=== PATIENT | male | born 1945 | race Caucasian/White ===

== ENCOUNTER → 2018-10-01 | Outpatient (CLI) | payer MEDICARE ==
[~2018-10-01] MED LIST: ALBUTEROL SULFATE 0.083% 2.5 MG/3 ML INH IH ONE; ASPI-555 PO; BENA20TA10 PO; FINA5TAB41 PO
== END | disposition home or self-care (01) ==
LOC: RESP 12:02
PROVIDERS: ATTEND Internal Medicine
DX: J44.9 Chronic obstructive pulmonary disease, unspecified (principal)
CPT/HCPCS: 94060; 94727; 94729

== ENCOUNTER 2019-03-04 11:11 | Inpatient (IN) | payer MEDICARE | END 2019-03-07 13:30 | disposition home or self-care (01) | LOC: EDH 11:11 → EDHIP 11:35 → 3BH 18:30 | DX: A41.9 Sepsis, unspecified organism (principal); K35.80 Unspecified acute appendicitis; I10 Essential (primary) hypertension; E03.9 Hypothyroidism, unspecified; N40.0 Benign prostatic hyperplasia without lower urinary tract symptoms ==

== ENCOUNTER 2019-04-22 05:30 | Day surgery (SDC) | payer MEDICARE ==
[2019-04-22] VITALS (7 sets, daily range): BP systolic 87–146; BP diastolic 47–74
[~2019-04-22] VITALS: Ht 180.3 cm; Wt 85.7 kg
[~2019-04-22 05:30] MED LIST changes: +ALBU2.5V2 IH; -ALBUTEROL SULFATE 0.083% 2.5 MG/3 ML INH IH ONE; +AMLO5TAB9 PO; -ASPI-555 PO; -BENA20TA10 PO; -FINA5TAB41 PO; +LEVO0.5P2 MC; +PRAV40TA3 PO; +TAMS-1 PO; +UMEC1DIS IH
[2019-04-22] MEDS ORDERED: SODIUM CHLORIDE 0.9% 1000ML 1,000 ML IV ONE (05:43)
[2019-04-22] MEDS ORDERED: ASPI-555 PO (06:10)
[2019-04-22] MEDS ORDERED: PROPOFOL 10 MG/ML 20ML VIAL IV ONE (06:48)
== END 2019-04-22 07:40 | disposition home or self-care (01) ==
LOC: DAH 05:30 → ENDO 05:30
PROVIDERS: ATTEND Internal Medicine Gastroenterology
DX: Z12.11 Encounter for screening for malignant neoplasm of colon (principal); D12.2 Benign neoplasm of ascending colon; K57.30 Diverticulosis of large intestine without perforation or abscess without bleeding; I10 Essential (primary) hypertension; J44.9 Chronic obstructive pulmonary disease, unspecified; Z90.49 Acquired absence of other specified parts of digestive tract; Z98.890 Other specified postprocedural states; Z86.010 Personal history of colon polyps; Z88.8 Allergy status to other drugs, medicaments and biological substances; Z91.041 Radiographic dye allergy status; Z79.899 Other long term (current) drug therapy; Z79.82 Long term (current) use of aspirin; Z98.49 Cataract extraction status, unspecified eye
CPT/HCPCS: 45385; 88305; A4606; J2704; J7030

== ENCOUNTER 2021-09-26 06:41 | Day surgery (SDC) | payer MEDICARE, OTHER ==
[2021-09-21 11:13] LABS: HEMATOCRIT 39.6 % (42-54); MEAN CORPUSCULAR HEMOGLOBIN 38.2 pg (27.0-33.0); MEAN CORPUSCULAR HGB CONC 34.8 g/dL (32.0-36.0); MEAN CORPUSCULAR VOLUME 109.7 fL (79-99); RED BLOOD CELL COUNT(AUTO) 3.61 MIL/uL (4.50-6.20); WHITE BLOOD COUNT (AUTO) 9.7 K/uL (4.8-10.8)
[2021-09-21 11:14] LABS: BASOPHILS % (AUTO) 0.1 % (0.0-5.0); EOSINOPHILS % (AUTO) 0.4 % (0.0-8.0); LYMPHOCYTES % (AUTO) 22.3 % (21.0-51.0); MONOCYTES % (AUTO) 9.9 % (3.0-13.0); NEUTROPHILS % (AUTO) 66.7 % (40.0-77.0); PLATELET COUNT (AUTO) 173 K/uL (130-400)
[2021-09-21 12:02] LABS: CREATININE 0.8 mg/dL (0.5-1.5); POTASSIUM 4.4 mmol/L (3.5-5.1)
[2021-09-25 14:57] VITALS: BP 143/73
[~2021-09-26] VITALS: Ht 177.8 cm; Wt 78.5 kg
[2021-09-26] VITALS (15 sets, daily range): BP systolic 108–141; BP diastolic 64–78
[~2021-09-26 06:41] MED LIST changes: -ALBU2.5V2 IH; +AMLO-257 PO; -AMLO5TAB9 PO; -TAMS-1 PO; -UMEC1DIS IH
[2021-09-26] MEDS ORDERED: LIDOCAINE 1%-EPI 1:100,000 20 ML VIAL IJ ONE (08:11)
[2021-09-26] MEDS ORDERED: SUCCINYLCHOLINE 200MG/10ML SYR ONE (08:15)
[2021-09-26] MEDS ORDERED: LIDOCAINE PF 100MG/5ML (2%) SYRINGE 5ML ONE (08:15)
[2021-09-26] MEDS ORDERED: FENTANYL CITRATE PF 50 MCG/1 ML 2ML VIAL ONE (08:16)
[2021-09-26] MEDS ORDERED: PROPOFOL 10 MG/ML 20ML VIAL IV ONE (08:16)
[2021-09-26] MEDS ORDERED: GLYCOPYRROLATE 1 MG/5 ML SYRINGE ONE (08:16)
[2021-09-26] MEDS ORDERED: ONDANSETRON 4MG INJ ONE (08:16)
[2021-09-26] MEDS ORDERED: ROCURONIUM 10MG/1ML SYR 10 MG/ML ML ONE (08:16)
[2021-09-26] MEDS ORDERED: MIDAZOLAM HCL 1 MG/ML 2ML VIAL ONE (08:16)
[2021-09-26] MEDS ORDERED: LACTATED RINGERS 1000ML 1,000 ML IV ONE (08:19)
[2021-09-26] MEDS ORDERED: FLUT15.845 NS (08:47)
[2021-09-26] MEDS ORDERED: UMEC1DIS IH (08:47)
[2021-09-26] MEDS ORDERED: EPHEDRINE SULFATE 50 MG/ML AMPULE ONE (08:57)
== END 2021-09-26 10:30 | disposition home or self-care (01) ==
LOC: DAH 06:41
PROVIDERS: ATTEND Otolaryngology Plastic Surgery within the Head & Neck
DX: R49.0 Dysphonia (principal); Z20.822 Contact with and (suspected) exposure to COVID-19; I10 Essential (primary) hypertension; J44.9 Chronic obstructive pulmonary disease, unspecified; Z86.73 Personal history of transient ischemic attack (TIA), and cerebral infarction without residual deficits; Z85.21 Personal history of malignant neoplasm of larynx; Z88.3 Allergy status to other anti-infective agents; Z92.3 Personal history of irradiation
CPT/HCPCS: 31536; 36415; 80048; 85025; 87635; 88305; 88341; 88342; 93005 ×2; A4215; A4216; A4221; A4222; A4223 ×2; A4663; C9803; J0330; J2001; J2405; J2704; J3010; J3490 ×3; J7120; J2250

== ENCOUNTER 2024-03-14 13:18 | Observation (INO) | payer OTHER ==
[~2024-03-14] VITALS: Ht 172.7 cm; Wt 69.9 kg
[~2024-03-14 13:18] MED LIST changes: +AEC81 PO; +ALBU2.5V2 IH; +BEER PO; +FINA5TAB41 PO; -LEVO0.5P2 MC; +LEVO75CA5 PO; +PREDNISONE PO; +TAMS-1 PO; +UMEC62.5 IH; +[UNRECOGNIZED DRUG - MIXTURE] IH
[2024-03-14 14:27] LABS: BASOPHILS # (AUTO) 0.04 K/uL (0.00-0.20); BASOPHILS % (AUTO) 0.5 % (0.0-5.0); EOSINOPHILS # (AUTO) 0.28 K/uL (0.00-0.70); EOSINOPHILS % (AUTO) 3.5 % (0.0-8.0); HEMATOCRIT 41.1 % (42-54); IMMATURE GRANULOCYTE ABSOLUTE 0.04 K/uL (0-1); LYMPHOCYTES % (AUTO) 24.8 % (21.0-51.0); MEAN CORPUSCULAR HEMOGLOBIN 31.7 pg (27.0-33.0); MEAN CORPUSCULAR HGB CONC 33.8 g/dL (32.0-36.0); MEAN CORPUSCULAR VOLUME 93.8 fL (79-99); MONOCYTES # (AUTO) 1.2 K/uL (0.1-1.0); MONOCYTES % (AUTO) 15.4 % (3.0-13.0); NEUTROPHILS # (AUTO) 4.5 K/uL (1.8-7.7); NEUTROPHILS % (AUTO) 55.3 % (40.0-77.0); PLATELET COUNT (AUTO) 238 K/uL (130-400); RED BLOOD CELL COUNT(AUTO) 4.38 MIL/uL (4.50-6.20); RED CELL DISTRIBUTION WIDTH 13.9 % (11.0-15.5); WHITE BLOOD COUNT (AUTO) 8.1 K/uL (4.8-10.8)
[2024-03-14 14:36] LABS: CREATININE 0.9 mg/dL (0.5-1.3); POTASSIUM 4.5 mmol/L (3.5-5.1)
[2024-03-14 14:41] LABS: ALBUMIN 3.1 g/dL (3.5-5.0); BILIRUBIN,TOTAL 0.4 mg/dL (0.2-1.0); TOTAL PROTEIN, SERUM 7.2 g/dL (6.0-8.3)
[2024-03-14] MEDS: ASPIRIN 325MG TAB PO ONE (15:19)
[2024-03-14] MEDS ORDERED: ACETAMINOPHEN 325 MG TAB PO PRN (17:30)
[2024-03-14 19:00] VITALS: BP 143/85; PULSE 101; RESP 18
[2024-03-14 20:00] VITALS: BP 133/78; PULSE 101; RESP 19
[2024-03-14] MEDS ORDERED: MIDO5TAB4 PO (22:18)
[2024-03-14] MEDS ORDERED: MULT-1203 PO (22:18)
[2024-03-14] MEDS ORDERED: METO25TA6 PO (22:18)
[2024-03-14] MEDS ORDERED: OMEP-420 PO (22:18)
[2024-03-14] MEDS ORDERED: vit d3 PO (22:29)
[2024-03-14] MEDS ORDERED: vit b12 PO (22:29)
[2024-03-14] MEDS ORDERED: FLUT1BLS12 (22:29)
[2024-03-14] MEDS ORDERED: SUPER BETA PO (22:34)
[2024-03-14] MEDS ORDERED: MAGN400T40 PO (22:34)
[2024-03-14] MEDS ORDERED: FERR-82 PO (22:34)
[2024-03-14] MEDS ORDERED: ALBUTEROL 0.083% 2.5 MG/3 ML INH IH PRN (23:45)
[2024-03-14] MEDS ORDERED: PHARMACY COMMUNICATION MISC SCH (23:45)
[2024-03-14 23:57] VITALS: PULSE 108; RESP 20; O2SAT 92
[2024-03-15] VITALS (10 sets, daily range): BP systolic 113–129; BP diastolic 57–81; PULSE 64–118; RESP 17–20; O2SAT 94–99
[2024-03-15 04:36] LABS: BASOPHILS # (AUTO) 0.03 K/uL (0.00-0.20); BASOPHILS % (AUTO) 0.4 % (0.0-5.0); EOSINOPHILS # (AUTO) 0.37 K/uL (0.00-0.70); EOSINOPHILS % (AUTO) 4.4 % (0.0-8.0); HEMATOCRIT 38.3 % (42-54); IMMATURE GRANULOCYTE ABSOLUTE 0.03 K/uL (0-1); LYMPHOCYTES # (AUTO) 2.5 K/uL (1.0-4.8); LYMPHOCYTES % (AUTO) 29.8 % (21.0-51.0); MEAN CORPUSCULAR HEMOGLOBIN 31.8 pg (27.0-33.0); MEAN CORPUSCULAR VOLUME 90.8 fL (79-99); MONOCYTES # (AUTO) 1.3 K/uL (0.1-1.0); MONOCYTES % (AUTO) 15.4 % (3.0-13.0); NEUTROPHILS # (AUTO) 4.2 K/uL (1.8-7.7); NEUTROPHILS % (AUTO) 49.6 % (40.0-77.0); PLATELET COUNT (AUTO) 243 K/uL (130-400); RED BLOOD CELL COUNT(AUTO) 4.22 MIL/uL (4.50-6.20); RED CELL DISTRIBUTION WIDTH 13.9 % (11.0-15.5); WHITE BLOOD COUNT (AUTO) 8.5 K/uL (4.8-10.8)
[2024-03-15 04:56] LABS: ALBUMIN 2.9 g/dL (3.5-5.0); BILIRUBIN,TOTAL 0.6 mg/dL (0.2-1.0); CREATININE 0.8 mg/dL (0.5-1.3); POTASSIUM 4.5 mmol/L (3.5-5.1); TOTAL PROTEIN, SERUM 6.7 g/dL (6.0-8.3)
[2024-03-15] MEDS: PHARMACY COMMUNICATION MISC SCH (06:30)
[2024-03-15] MEDS: LEVOTHYROXINE 75 MCG TABLET PO SCH (06:31)
[2024-03-15] MEDS: ASPIRIN 81 MG EC TAB PO SCH (08:56)
[2024-03-15] MEDS: MULTIVITAMIN TABLET PO SCH (08:56)
[2024-03-15] MEDS: FERROUS SULFATE 325 MG TABLET.DR PO SCH (08:57)
[2024-03-15] MEDS: PANTOPRAZOLE 40 MG TAB DR PO SCH (08:57)
[2024-03-15] MEDS: MIDODRINE HCL 5 MG TABLET PO SCH (08:58)
[2024-03-15] MEDS ORDERED: UMECLIDINIUM BROMIDE IH SCH (09:00)
[2024-03-15] MEDS: VIT D3 PO SCH (09:00)
[2024-03-15] MEDS ORDERED: METOPROLOL TARTRATE 25 MG TAB PO SCH (09:00)
[2024-03-15] MEDS: SUPER BETA PO SCH (09:00)
[2024-03-15] MEDS: TAMSULOSIN HCL 0.4 MG CAP.ER.24H PO SCH (09:05)
[2024-03-15] MEDS: METOPROLOL TARTRATE 25 MG TAB PO SCH (09:05)
[2024-03-15] MEDS: FINASTERIDE 5 MG TABLET PO SCH (09:05)
[2024-03-15] MEDS: ATORVASTATIN 10 MG TABLET PO SCH (20:39)
[2024-03-15] MEDS: MAGNESIUM OXIDE 400 MG TABLET PO SCH (20:39)
[2024-03-15] MEDS ORDERED: TAMSULOSIN HCL 0.4 MG CAP.ER.24H PO SCH (21:00)
[2024-03-15] MEDS: FLUTICASONE PROPION IH SCH (21:00)
[2024-03-15] MEDS: UMECLIDINIUM BROMIDE IH SCH (21:00)
[2024-03-15] MEDS: SALMETEROL IH SCH (21:00)
[2024-03-15] MEDS ORDERED: FINASTERIDE 5 MG TABLET PO SCH (21:00)
[2024-03-15] MEDS: ALBUTEROL 0.083% 2.5 MG/3 ML INH IH PRN (21:22)
[2024-03-16] VITALS (12 sets, daily range): BP systolic 116–130; BP diastolic 68–84; PULSE 94–116; RESP 18–20; O2SAT 95–97
[2024-03-16] MEDS: REGADENOSON 0.4 MG/5 ML PF SYG IVP SCH (16:51)
[2024-03-17 00:33] VITALS: BP 126/77; PULSE 86; RESP 18
[2024-03-17 04:10] VITALS: BP 132/61; PULSE 86; RESP 18
[2024-03-17 07:15] VITALS: BP 138/73; PULSE 103; RESP 20
[2024-03-17 07:28] VITALS: PULSE 86; RESP 18; O2SAT 95
[2024-03-17 09:44] VITALS: O2SAT 96
== END 2024-03-17 11:15 | disposition home or self-care (01) ==
LOC: EDH 13:18 → EDHIP 17:26 → 4DH 19:00
PROVIDERS: ADMIT Internal Medicine; ATTEND Internal Medicine
DX: I25.118 Atherosclerotic heart disease of native coronary artery with other forms of angina pectoris (principal); R07.89 Other chest pain; J44.9 Chronic obstructive pulmonary disease, unspecified; E78.00 Pure hypercholesterolemia, unspecified; I10 Essential (primary) hypertension; I73.9 Peripheral vascular disease, unspecified; Z88.8 Allergy status to other drugs, medicaments and biological substances; Z79.82 Long term (current) use of aspirin; Z95.2 Presence of prosthetic heart valve
CPT/HCPCS: 99285; 82550; 84484; 80053 ×2; 85025 ×2; 36415 ×2; 71045 ×2; 93005; 94664; 71250; 94640 ×3; 93017; 78452; 93306; G0378 ×61; J2785; A9500 ×2; 96374

== ENCOUNTER 2024-11-06 13:53 | Observation (INO) | payer OTHER ==
[~2024-11-06] VITALS: Ht 175.3 cm; Wt 77.3 kg
[~2024-11-06 13:53] MED LIST changes: -AMLO-257 PO; -BEER PO; +FERR-82 PO; +FLUT1BLS12; +MAGN400T40 PO; +METO25TA6 PO; +MIDO5TAB4 PO; +MULT-1203 PO; +OMEP-420 PO; -PREDNISONE PO; +SUPER BETA PO; -[UNRECOGNIZED DRUG - MIXTURE] IH; +vit b12 PO; +vit d3 PO
[2024-11-06] MEDS ORDERED: DiphenhydrAMINE HCL 25 MG CAPSULE PO PRN (16:00)
[2024-11-06] MEDS ORDERED: MAGNESIUM HYDROXIDE 30 ML/UDCUP PO PRN (16:00)
[2024-11-06] MEDS ORDERED: ZOLPidem TARTrate 5 MG TAB PO PRN (16:00)
[2024-11-06] MEDS ORDERED: guaiFENesin-DM 200/20MG 10ML PO PRN (16:00)
[2024-11-06] MEDS ORDERED: ondanSETRON 4MG INJ IVP PRN (16:00)
[2024-11-06 16:24] LABS: BASOPHILS # (AUTO) 0.03 K/uL (0.00-0.20); BASOPHILS % (AUTO) 0.4 % (0.0-5.0); EOSINOPHILS % (AUTO) 1.3 % (0.0-8.0); HEMATOCRIT 39.7 % (42-54); IMMATURE GRANULOCYTE ABSOLUTE 0.02 K/uL (0-1); LYMPHOCYTES # (AUTO) 1.3 K/uL (1.0-4.8); LYMPHOCYTES % (AUTO) 17.1 % (21.0-51.0); MEAN CORPUSCULAR HEMOGLOBIN 33.6 pg (27.0-33.0); MEAN CORPUSCULAR HGB CONC 35.5 g/dL (32.0-36.0); MEAN CORPUSCULAR VOLUME 94.5 fL (79-99); MONOCYTES % (AUTO) 12.8 % (3.0-13.0); NEUTROPHILS # (AUTO) 5.1 K/uL (1.8-7.7); NEUTROPHILS % (AUTO) 68.1 % (40.0-77.0); PLATELET COUNT (AUTO) 271 K/uL (130-400); RED CELL DISTRIBUTION WIDTH 12.8 % (11.0-15.5); WHITE BLOOD COUNT (AUTO) 7.4 K/uL (4.8-10.8)
[2024-11-06] MEDS ORDERED: MAG/ALUM/SIMETH 30 ML UDCUP PO PRN (16:30)
[2024-11-06 16:41] LABS: ALBUMIN 2.7 g/dL (3.5-5.0); BILIRUBIN,TOTAL 0.4 mg/dL (0.2-1.0); POTASSIUM 3.6 mmol/L (3.5-5.1); TOTAL PROTEIN, SERUM 6.8 g/dL (6.0-8.3)
[2024-11-06] MEDS: DEXTROSE 5 %-0.45 % NACL 1,000 ML IV SCH (17:08)
[2024-11-06] MEDS: cefTRIAXone 1G VIAL IVPB SCH (17:12)
--- NOTE | 2024-11-06 18:00 | NUR ---
PLACED 20G ON RIGHT HAND
--- NOTE | 2024-11-06 19:41 | NUR ---
PLACED D5/0.45NS @ 120 ML/HR
--- NOTE | 2024-11-06 19:42 | NUR ---
DID NOT DO MEDICATION RECONSILIATION DUE TO PATIENT NOT HAVING THE LIST OF MEDICATION WITH HIM. DAUGHTER WILL BRING THEM TOMORROW IN AM.
--- NOTE | 2024-11-06 19:43 | NUR ---
STOOL SAMPLE PENDING.
[2024-11-06] MEDS: metRONIDazole 500MG/100ML BAG IV SCH (21:21)
[2024-11-06] MEDS ORDERED: FURO20TA4 PO (21:44)
[2024-11-06] MEDS ORDERED: LEVO75CA5 PO (21:44)
[2024-11-06] MEDS ORDERED: FINA5TAB41 PO (21:44)
[2024-11-06] MEDS ORDERED: IPRA3AMP24 NEB (21:44)
--- NOTE | 2024-11-06 21:45 | NUR ---
MED REC DONE AT THIS TIME.
[2024-11-06 23:30] VITALS: BP 131/65; PULSE 82; RESP 19; TEMP 98.2
[2024-11-07] VITALS (7 sets, daily range): BP systolic 101–120; BP diastolic 54–78; PULSE 62–96; RESP 18–20; TEMP 97.6–98.7; O2SAT 94–96
--- NOTE | 2024-11-07 01:12 | NUR ---
MELISSA FABIAN PAGED AND VOICEMAIL LEFT RE:PRN MELISSA POOL. PENDING CALL BACK.
--- NOTE | 2024-11-07 01:52 | HP ---
HISTORY OF PRESENT ILLNESS: The patient is a direct admission from my office. He came complaining of persistent diarrhea for the last few days in spite of treatment with oral antibiotics. Several members of his family and friends had been having same symptoms and had improved, but he has not. He has been unable to tolerate any oral intake, has had more than 5 times per day watery diarrhea. REVIEW OF SYSTEMS: No fever, chills, seizures, or loss of consciousness. No chest pain or palpitations. No cough, wheeze, or rhonchi. No dysuria, urgency, or frequency. No rashes, petechiae, or ecchymoses. No hallucinations or delusions, no suicidal ideation. The patient is legally blind. MEDICATIONS: Include furosemide, metoprolol, finasteride, pravastatin, levothyroxine, DuoNeb. ALLERGIES: IODINE AND BENAZEPRIL. PAST MEDICAL HISTORY: Retinal detachment bilaterally. Head and neck cancer in remission. COPD, history of chronic smoking, sleep apnea. BPH, dyslipidemia, hypothyroidism. PHYSICAL EXAMINATION: GENERAL: He is currently awake, alert, oriented in person, time, and place, ill appearing. VITAL SIGNS: Blood pressure 90/60, pulse 106, respiratory rate 16, temperature 96.8. HEENT: Normocephalic, atraumatic. LUNGS: Clear to auscultation. Decreased breath sounds bilaterally. No wheezes or rhonchi. No wet rales. HEART: S1, S2 are distant. ABDOMEN: Soft, nontender. EXTREMITIES: No clubbing or cyanosis. ASSESSMENT AND PLAN: * Dehydration. Continue with IV fluids D5 half NS at 120 mL per hour. Send for labs. * Diarrhea. We are going to send stool for Clostridium difficile, fecal leukocytes, ova and parasites. Reassess with results. * Hypertension. Continue to hold furosemide for the time being. * Chronic obstructive pulmonary disease. Continue with bronchodilators. * Diarrhea. We are going to start also on Rocephin and Flagyl. * Reassess in a.m. with labs. DOS: 11/06/2024 TID: [id number] RECEIPT: [id number] [facility]
--- NOTE | 2024-11-07 06:43 | EKG ---
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
[2024-11-07] MEDS: PANTOPrazole 40 MG/VIAL IVP SCH (08:57)
[2024-11-07] MEDS: IpraTROPium/alBUTERol SULFATE 3 ML SOLUTION IH SCH (10:08)
--- NOTE | 2024-11-07 15:18 | PN ---
PROGRESS NOTE PROGRESS NOTE DATE OF PROGRESS NOTE: 11/07/24 SUBJECTIVE: No more diarrhea VITAL SIGNS Vital Signs Date Time Temp Pulse Resp B/P (MAP) Pulse Ox O2 Delivery O2 Flow Rate FiO2 11/07/24 14:58 87 18 11/07/24 11:52 98.8 101/54 92 Room Air 21 11/07/24 08:57 0 PHYSICAL EXAM: GENERAL: He is currently awake, alert, oriented in person, time, and place, ill appearing. VITAL SIGNS: Blood pressure 90/60, pulse 106, respiratory rate 16, temperature 96.8. HEENT: Normocephalic, atraumatic. LUNGS: Clear to auscultation. Decreased breath sounds bilaterally. No wheezes or rhonchi. No wet rales. HEART: S1, S2 are distant. ABDOMEN: Soft, nontender. EXTREMITIES: No clubbing or cyanosis. LABORATORY: Laboratory Result(s) Test 11/06/24 16:19 White Blood Count 7.4 K/uL (4.8-10.8) Red Blood Count 4.20 MIL/uL (4.50-6.20) Hemoglobin 14.1 g/dL (14.0-18.0) Hematocrit 39.7 % (42-54) Mean Corpuscular Volume 94.5 fL (79-99) Mean Corpuscular Hemoglobin 33.6 pg (27.0-33.0) Mean Corpuscular Hemoglobin Concent 35.5 g/dL (32.0-36.0) Red Cell Distribution Width 12.8 % (11.0-15.5) Platelet Count 271 K/uL (130-400) Mean Platelet Volume 8.8 fL (7.5-10.5) Immature Granulocyte % (Auto) 0.3 % (0-1) Neutrophils (%) (Auto) 68.1 % (40.0-77.0) Lymphocytes (%) (Auto) 17.1 % (21.0-51.0) Monocytes (%) (Auto) 12.8 % (3.0-13.0) Eosinophils (%) (Auto) 1.3 % (0.0-8.0) Basophils (%) (Auto) 0.4 % (0.0-5.0) Neutrophils # (Auto) 5.1 K/uL (1.8-7.7) Lymphocytes # (Auto) 1.3 K/uL (1.0-4.8) Monocytes # (Auto) 1.0 K/uL (0.1-1.0) Eosinophils # (Auto) 0.10 K/uL (0.00-0.70) Basophils # (Auto) 0.03 K/uL (0.00-0.20) Absolute Immature Granulocyte (auto 0.02 K/uL (0-1) Nucleated Red Blood Cells 0.0 % (0.0-0.19) Sodium Level 135 mmol/L (136-145) Potassium Level 3.6 mmol/L (3.5-5.1) Chloride Level 99 mmol/L (101-111) Carbon Dioxide Level 27 mmol/L (21-32) Blood Urea Nitrogen 12 mg/dL (7-18) Creatinine 1.0 mg/dL (0.5-1.3) Glomerular Filtration Rate Calc 77 mL/min (>90) Random Glucose 199 mg/dL (70-105) Total Calcium 8.6 mg/dL (8.5-10.1) Total Bilirubin 0.4 mg/dL (0.2-1.0) Aspartate Amino Transf (AST/SGOT) 29 U/L (10-37) Alanine Aminotransferase (ALT/SGPT) 31 U/L (12-78) Alkaline Phosphatase 95 U/L (50-136) Total Protein 6.8 g/dL (6.0-8.3) Albumin 2.7 g/dL (3.5-5.0) INPATIENT MEDS: Current Medications Medications Dose Ordered Sig/Aga Start Time Stop Time Status Last Admin Diphenhydramine HCl 25 mg Q4HPRN PRN 11/06/24 16:00 12/06/24 15:59 Ondansetron HCl 4 mg Q6H PRN 11/06/24 16:00 12/06/24 15:59 Zolpidem Tartrate 5 mg HS PRN 11/06/24 16:00 12/06/24 15:59 Guaifenesin/ Dextromethorphan 10 ml Q4H PRN 11/06/24 16:00 12/06/24 15:59 Pantoprazole Sodium 40 mg DAILY 11/07/24 09:00 12/07/24 08:59 11/07/24 08:57 Ceftriaxone Sodium 1 gm Q24H 11/06/24 16:00 11/16/24 15:59 11/06/24 17:12 Metronidazole/ Sodium Chloride 500 mg Q8H 11/06/24 21:00 11/16/24 20:59 11/07/24 12:55 Al Hydroxide/Mg Hydroxide 30 ml Q6H6 PRN 11/06/24 16:30 12/06/24 16:29 Albuterol 1 udvial TID 11/07/24 09:00 12/07/24 08:59 11/07/24 14:58 PLAN: ASSESSMENT AND PLAN: * Dehydration. Continue with IV fluids D5 half NS at 120 mL per hour. Send for labs. * Diarrhea. We are going to send stool for Clostridium difficile, fecal leukocytes, ova and parasites. Reassess with results. * Hypertension. Continue to hold furosemide for the time being. * Chronic obstructive pulmonary disease. Continue with bronchodilators. * Diarrhea. We are going to start also on Rocephin and Flagyl. * Reassess in a.m. with labs. DEE DEE PEDERSON MD Nov 07, 2024 15:18
--- NOTE | 2024-11-07 15:53 | NUR ---
DISCHARGE PIV DC'D DISCHARGE INSTRUCTIONS GIVEN TO THE PATIENT PRESCRIPTION HANDED TO THE PATIENT ALL QUESTIONS ANSWERED PRIOR TO DISCHARGE
--- NOTE | 2024-11-08 20:48 | DS ---
Discharge Summary DIAGNOSE(S): [Diarrhea dehydration] HOSPITAL COURSE SUMMARY: [Improved with IV hydration and discharge as he tolerated oral diet well] CASH CHECKER(S): [None] PROCEDURE(S)/TREATMENT(S): [None] PROBLEM(S): [None] FOLLOW-UP TEST(S): [None] DISCHARGE INSTRUCTIONS: [Follow up with PCP in 1-2 days] Home Meds Reported Medications Ipratropium/Albuterol Sulfate (Iprat-Albut 0.5-3(2.5) mg/3 ml) 0.5 Mg-3 Mg (2.5 Mg Base)/3 Ml Ampul.neb, 1 VIAL NEB TID for 30 Days, #180 ML 0 Refills 11/06/24 Levothyroxine Sodium (Levothyroxine) 75 Mcg Capsule, 1 TAB PO DAILY for 30 Days, #30 CAP 0 Refills 11/06/24 Finasteride (Finasteride) 5 Mg Tablet, 5 TAB PO DAILY for 30 Days, #30 TAB 0 Refills 11/06/24 Furosemide (Furosemide) 20 Mg Tablet, 1 TAB PO DAILY for 30 Days, #30 TAB 0 Refills 11/06/24 [super beta] No Conflict Check, 1 CAP PO AM SUPER BETA PROSTATE ADVANCED 03/14/24 Ferrous Sulfate (Iron) 325 Mg (65 Mg Iron) Tablet, 325 MG PO HS, TAB 03/14/24 Magnesium Oxide (Magnesium) 400 Mg Magnesium Tablet, 400 MG PO HS, TAB 24 Fluticasone Propion/Salmeterol (Fluticasone-Salmeterol 250-50) 250 Mcg-50 Mcg/Dose Blst.w.dev, 1 PUFF HS 03/14/24 [vit d3] No Conflict Check, 1 TAB PO DAILY nature made = 1,000 IU 03/14/24 [vit b12] No Conflict Check, 1 TAB PO AM 1000 mcg tab 03/14/24 Metoprolol Tartrate (Metoprolol Tartrate) 25 Mg Tablet, 6.25 MG PO BID, TAB 03/14/24 Midodrine HCl (Midodrine HCl) 5 Mg Tablet, 1 TAB PO TID 03/14/24 Omeprazole (Omeprazole) 20 Mg Tab.rap.dr, 20 MG PO HS 03/14/24 Multivitamin (Multi Vitamin Daily) 1 Each Tablet, 1 EACH PO DAILY, TAB 03/14/24 Aspirin (ASPIRIN 81 MG ECTAB) 81 Mg Ectab, 81 MG PO DAILY, TAB.EC 11/08/23 Albuterol Sulfate (Albuterol Sulfate) 2.5 Mg/3 Ml (0.083 %) Vial.neb, 2.5 MG IH AD PRN for SHORTNESS OF BREATH, INH 11/08/23 Umeclidinium [place] (Incruse Ellipta) 62.5 Mcg/Actuation Blst.w.dev, 1 PUFF IH AM 11/08/23 Finasteride (Finasteride) 5 Mg Tablet, 5 MG PO HS, TAB 11/08/23 Levothyroxine Sodium (Levothyroxine) 75 Mcg Capsule, 75 MCG PO HS, CAP 11/08/23 Tamsulosin HCl (Flomax) 0.4 Mg Cap.er.24h, 0.4 MG PO HS, CAPSULE. 11/08/23 Pravastatin Sodium (Pravastatin Sodium) 40 Mg Tablet, 40 MG PO HS, TAB 03/04/19 DEE DEE PEDERSON MD Nov 08, 2024 20:47
== END 2024-11-07 16:20 | disposition home or self-care (01) ==
LOC: EDH 13:53 → INTOOBSV 13:54 → DIRECT 13:54 → 3BH 23:32
PROVIDERS: ADMIT Internal Medicine; ATTEND Internal Medicine
DX: E86.0 Dehydration (principal); R19.7 Diarrhea, unspecified; I10 Essential (primary) hypertension; J44.9 Chronic obstructive pulmonary disease, unspecified; E78.5 Hyperlipidemia, unspecified; E03.9 Hypothyroidism, unspecified; N40.0 Benign prostatic hyperplasia without lower urinary tract symptoms; Z87.891 Personal history of nicotine dependence; Z91.040 Latex allergy status; Z88.8 Allergy status to other drugs, medicaments and biological substances; Z85.89 Personal history of malignant neoplasm of other organs and systems
CPT/HCPCS: 96361 ×2; 96365; 96375 ×2; 80053; 85025; 36415; 93005; 96366; 97161; 97116; 94640; G0378 ×26; G0379; J0696; J3490 ×3; J2470; 94664

== ENCOUNTER 2025-01-20 06:57 | Day surgery (SDC) | payer OTHER ==
[~2025-01-20] VITALS: Ht 172.7 cm; Wt 63.5 kg
[2025-01-20] VITALS (10 sets, daily range): BP systolic 85–120; BP diastolic 38–69; PULSE 69–87; RESP 16–20; TEMP 97.3–97.6
[~2025-01-20 06:57] MED LIST changes: +FURO20TA4 PO; +IPRA3AMP24 NEB
[2025-01-20] MEDS: 0.9%NACL 1000ML 1,000 ML IV ONE (08:36)
[2025-01-20] MEDS ORDERED: proPOFol 10 MG/ML 20ML VIAL IV ONE (09:28)
== END 2025-01-20 11:03 | disposition home or self-care (01) ==
LOC: ENDO 06:57 → DAH 06:57 → ENDO 11:03
PROVIDERS: ATTEND Surgery
DX: Z12.11 Encounter for screening for malignant neoplasm of colon (principal); R93.3 Abnormal findings on diagnostic imaging of other parts of digestive tract; K56.691 Other complete intestinal obstruction; K57.30 Diverticulosis of large intestine without perforation or abscess without bleeding; D49.0 Neoplasm of unspecified behavior of digestive system; I10 Essential (primary) hypertension; J44.9 Chronic obstructive pulmonary disease, unspecified; E03.9 Hypothyroidism, unspecified; E78.5 Hyperlipidemia, unspecified; Z88.8 Allergy status to other drugs, medicaments and biological substances; Z85.038 Personal history of other malignant neoplasm of large intestine; Z98.0 Intestinal bypass and anastomosis status; Z79.82 Long term (current) use of aspirin; Z79.899 Other long term (current) drug therapy; Z53.8 Procedure and treatment not carried out for other reasons
CPT/HCPCS: 45381; 45380; J7030; J2704; A4620; A4215 ×2; A4223; A4222; A4221; A4663; A4606; J3490